=== PATIENT | male | born 1950 | race Caucasian/White ===

== ENCOUNTER → 2023-05-06 | Outpatient (CLI) | payer MEDICARE ==
[~2023-05-06] MED LIST: ISOVUE-370 76% 100ML VIAL As Ordered ONE
[2023-05-06 17:14] LABS: BLOOD UREA NITROGEN 18 MG/DL (9-23); CALCIUM LEVEL 8.5 MG/DL (8.3-10.6); CARBON DIOXIDE LEVEL 30 MMOL/L (20-31); CHLORIDE LEVEL 104 MMOL/L (98-107); CREATININE FOR GFR 0.71 MG/DL (0.70-1.30); GLOMERULAR FILTRATION RATE > 60.0 (>42); GLUCOSE, FASTING 81 MG/DL (74-106); SODIUM LEVEL 140 MMOL/L (136-145)
== END ==
LOC: M RAD 15:54
PROVIDERS: ATTEND Urology
DX: R82.89 Other abnormal findings on cytological and histological examination of urine (principal)
CPT/HCPCS: 36415; 74178; 80048; Q9967

== ENCOUNTER 2023-06-27 06:11 | Day surgery (SDC) | payer MEDICARE ==
[~2023-06-27] VITALS: Ht 167.6 cm; Wt 66.8 kg
[~2023-06-27 06:11] MED LIST changes: +ASPI81TA26 PO; +FAMO40TA3 PO; -ISOVUE-370 76% 100ML VIAL As Ordered ONE; +LISI5TAB11 PO; +OMEP1CAP73 PO; +ROSU40TA4 PO; +VITMTA PO
[2023-06-27] MEDS ORDERED: LR 1,000 ML IV SCH ×2 (06:40→10:00)
[2023-06-27] MEDS ORDERED: ONDANSETRON 4MG 2ML VIAL IV PRN ×2 (06:40→10:00)
[2023-06-27] MEDS ORDERED: ceFAZolin 2 GM/D5W 50 ML IV BAG As Ordered ONE (06:45)
[2023-06-27] MEDS ORDERED: ceFAZolin SOD 2 GM in IV 1 EA IV ONE (06:50)
[2023-06-27] MEDS ORDERED: MIDAZOLAM INJ 2MG/2ML VIAL As Ordered ONE (08:47)
[2023-06-27] MEDS ORDERED: fentaNYL 250 MCG/5 ML INJECTION As Ordered ONE (08:47)
[2023-06-27] MEDS ORDERED: propofoL 200 MG/20 ML VIAL As Ordered ONE (08:47)
[2023-06-27] MEDS ORDERED: ROCURONIUM BROMIDE 50MG/5ML VIAL As Ordered ONE (08:47)
[2023-06-27] MEDS ORDERED: ONDANSETRON 4MG 2ML VIAL As Ordered ONE (08:47)
[2023-06-27] MEDS ORDERED: LIDOCAINE 2% 100MG/5ML SDV (FOR ANES.) As Ordered ONE (08:47)
[2023-06-27] MEDS ORDERED: ACETAMINOPHEN 1000MG 100ML IV BAG As Ordered ONE (09:38)
[2023-06-27] MEDS ORDERED: SUGAMMADEX SODIUM 500 MG/5 ML VIAL (BRIDION) As Ordered ONE (09:38)
[2023-06-27] MEDS ORDERED: MEPERIDINE 25 MG/ML 1ML VIAL IV PRN (10:00)
[2023-06-27] MEDS ORDERED: fentaNYL 100 MCG/2 ML INJECTION IV PRN (10:00)
[2023-06-27 11:30] VITALS: BP 132/74; TEMP 98.1; O2SAT 96
[2023-06-27] MEDS ORDERED: ACETAMINOPHEN TAB 650MG DOSE (2X325MG) PO PRN (15:30)
== END 2023-06-27 11:25 | disposition home or self-care (01) ==
LOC: M SDC 06:11
PROVIDERS: ATTEND Urology
DX: C67.4 Malignant neoplasm of posterior wall of bladder (principal); I10 Essential (primary) hypertension; E78.00 Pure hypercholesterolemia, unspecified; K21.9 Gastro-esophageal reflux disease without esophagitis; N40.0 Benign prostatic hyperplasia without lower urinary tract symptoms; Z87.891 Personal history of nicotine dependence; J30.9 Allergic rhinitis, unspecified; Z79.899 Other long term (current) drug therapy; Z79.82 Long term (current) use of aspirin
CPT/HCPCS: 52235; 88305; J0131; J1100; J2250; J2405; J3010

== ENCOUNTER 2023-08-15 07:19 | Day surgery (SDC) | payer MEDICARE ==
[~2023-08-15] VITALS: Ht 167.6 cm; Wt 70.8 kg
[~2023-08-15 07:19] MED LIST changes: +ceFAZolin SOD 2 GM in IV 1 EA IV ONE
[2023-08-15] MEDS ORDERED: fentaNYL 100 MCG/2 ML INJECTION As Ordered ONE ×2 (08:05→09:34)
[2023-08-15] MEDS ORDERED: LIDOCAINE 2% 100MG/5ML SDV (FOR ANES.) As Ordered ONE (08:06)
[2023-08-15] MEDS ORDERED: propofoL 200 MG/20 ML VIAL As Ordered ONE (08:06)
[2023-08-15] MEDS ORDERED: MIDAZOLAM INJ 2MG/2ML VIAL As Ordered ONE (08:06)
[2023-08-15] MEDS ORDERED: ONDANSETRON 4MG 2ML VIAL As Ordered ONE (08:06)
[2023-08-15] MEDS ORDERED: ROCURONIUM BROMIDE 50MG/5ML VIAL As Ordered ONE (08:06)
[2023-08-15] MEDS ORDERED: ACETAMINOPHEN 1000MG 100ML IV BAG As Ordered ONE (09:08)
[2023-08-15] MEDS ORDERED: SUGAMMADEX SODIUM 500 MG/5 ML VIAL (BRIDION) As Ordered ONE (09:20)
[2023-08-15] MEDS ORDERED: GLYCOPYRROLATE INJ 0.2 MG/ML 2 ML VIAL As Ordered ONE (09:43)
[2023-08-15] MEDS ORDERED: oxyCODONE 5MG TAB PO PRN (09:45)
[2023-08-15] MEDS ORDERED: fentaNYL 100 MCG/2 ML INJECTION IV PRN (09:45)
[2023-08-15] MEDS ORDERED: ONDANSETRON 4MG 2ML VIAL IV PRN (09:45)
[2023-08-15] MEDS ORDERED: HYDROMORPHONE HCL 0.5 MG/ 0.5 ML SYRINGE IV PRN (09:45)
[2023-08-15] MEDS ORDERED: ALBUTEROL 6.7GM INHALER **FOR ANES. CART/OMNICELL ONLY As Ordered ONE (09:52)
[2023-08-15] MEDS ORDERED: OXYB5TAB11 PO (10:14)
[2023-08-15] MEDS ORDERED: OXYC1TAB23 PO (10:14)
[2023-08-15] MEDS ORDERED: ACETAMINOPHEN TAB 650MG DOSE (2X325MG) PO PRN (10:20)
[2023-08-15 11:05] VITALS: BP 139/80; TEMP 98.1; O2SAT 96
== END 2023-08-15 11:17 | disposition home or self-care (01) ==
LOC: M SDC 07:19
PROVIDERS: ATTEND Urology
DX: C67.9 Malignant neoplasm of bladder, unspecified (principal); G47.9 Sleep disorder, unspecified; I10 Essential (primary) hypertension; E78.00 Pure hypercholesterolemia, unspecified; K21.9 Gastro-esophageal reflux disease without esophagitis; N40.0 Benign prostatic hyperplasia without lower urinary tract symptoms; Z87.891 Personal history of nicotine dependence
CPT/HCPCS: 52234; 88305; J0131; J0690; J1100; J2250; J2405; J3010

== ENCOUNTER → 2023-09-08 | Outpatient (REF) | payer MEDICARE ==
[~2023-09-08] MED LIST changes: +OXYB5TAB11 PO; +OXYC1TAB23 PO; -ceFAZolin SOD 2 GM in IV 1 EA IV ONE
[2023-09-08 18:18] LABS: APPEARANCE, URINE CLEAR (CLEAR); BACTERIA, URINE AUTO NEGATIVE (NEGATIVE); BILIRUBIN, URINE AUTO NEGATIVE (NEGATIVE); BLOOD, URINE BLOOD 1+ (NEGATIVE); COLOR, URINE YELLOW (YELLOW); GLUCOSE, URINE (UA) AUTO NEGATIVE (NEGATIVE); KETONE, URINE AUTO NEGATIVE (NEGATIVE); LEUKOCYTE ESTERASE, URINE AUTO NEGATIVE (NEGATIVE); MUCUS, URINE SMALL (NEGATIVE); NITRITE, URINE AUTO NEGATIVE (NEGATIVE); PROTEIN, URINE AUTO NEGATIVE (NEGATIVE); RBC, URINE AUTO 1 /HPF (0-3); SPECIFIC GRAVITY URINE AUTO 1.012 (1.002-1.035); SQUAMOUS EPITHELIAL CELL UR AU 1 /HPF (0-6); UROBILINOGEN, URINE AUTO 0.2 mg/dL (0.0-2.0); WBC, URINE AUTO 2 /HPF (0-3)
== END ==
LOC: M SMT 17:03
PROVIDERS: ATTEND Urology
DX: R30.0 Dysuria (principal)

== ENCOUNTER → 2023-10-08 | Outpatient (REF) | payer MEDICARE ==
[~2023-10-08] MED LIST changes: -OXYB5TAB11 PO; +OXYB5TAB14 PO
[2023-10-08 13:44] LABS: APPEARANCE, URINE HAZY (CLEAR); BACTERIA, URINE AUTO NEGATIVE (NEGATIVE); BILIRUBIN, URINE AUTO NEGATIVE (NEGATIVE); BLOOD, URINE BLOOD NEGATIVE (NEGATIVE); COLOR, URINE YELLOW (YELLOW); GLUCOSE, URINE (UA) AUTO NEGATIVE (NEGATIVE); KETONE, URINE AUTO NEGATIVE (NEGATIVE); LEUKOCYTE ESTERASE, URINE AUTO TRACE (NEGATIVE); MUCUS, URINE SMALL (NEGATIVE); NITRITE, URINE AUTO NEGATIVE (NEGATIVE); PROTEIN, URINE AUTO NEGATIVE (NEGATIVE); RBC, URINE AUTO 1 /HPF (0-3); SPECIFIC GRAVITY URINE AUTO 1.026 (1.002-1.035); SQUAMOUS EPITHELIAL CELL UR AU 1 /HPF (0-6); UROBILINOGEN, URINE AUTO 0.2 mg/dL (0.0-2.0); WBC, URINE AUTO 4 /HPF (0-3)
== END ==
LOC: M SMT 13:03
PROVIDERS: ATTEND Urology
DX: C67.9 Malignant neoplasm of bladder, unspecified (principal)

== ENCOUNTER → 2023-10-13 | Outpatient (REF) | payer MEDICARE ==
[2023-10-13 13:56] LABS: APPEARANCE, URINE CLEAR (CLEAR); BACTERIA, URINE AUTO NEGATIVE (NEGATIVE); BILIRUBIN, URINE AUTO NEGATIVE (NEGATIVE); BLOOD, URINE BLOOD NEGATIVE (NEGATIVE); COLOR, URINE YELLOW (YELLOW); GLUCOSE, URINE (UA) AUTO NEGATIVE (NEGATIVE); KETONE, URINE AUTO NEGATIVE (NEGATIVE); LEUKOCYTE ESTERASE, URINE AUTO NEGATIVE (NEGATIVE); MUCUS, URINE SMALL (NEGATIVE); NITRITE, URINE AUTO NEGATIVE (NEGATIVE); PROTEIN, URINE AUTO NEGATIVE (NEGATIVE); RBC, URINE AUTO 1 /HPF (0-3); SPECIFIC GRAVITY URINE AUTO 1.025 (1.002-1.035); SQUAMOUS EPITHELIAL CELL UR AU 0 /HPF (0-6); UROBILINOGEN, URINE AUTO 0.2 mg/dL (0.0-2.0); WBC, URINE AUTO 1 /HPF (0-3)
== END ==
LOC: M SMT 12:51
PROVIDERS: ATTEND Urology
DX: C67.9 Malignant neoplasm of bladder, unspecified (principal)

== ENCOUNTER → 2023-10-20 | Outpatient (REF) | payer MEDICARE ==
[2023-10-20 13:21] LABS: APPEARANCE, URINE CLEAR (CLEAR); BACTERIA, URINE AUTO NEGATIVE (NEGATIVE); BILIRUBIN, URINE AUTO NEGATIVE (NEGATIVE); BLOOD, URINE BLOOD NEGATIVE (NEGATIVE); COLOR, URINE YELLOW (YELLOW); GLUCOSE, URINE (UA) AUTO NEGATIVE (NEGATIVE); KETONE, URINE AUTO NEGATIVE (NEGATIVE); LEUKOCYTE ESTERASE, URINE AUTO NEGATIVE (NEGATIVE); NITRITE, URINE AUTO NEGATIVE (NEGATIVE); PROTEIN, URINE AUTO NEGATIVE (NEGATIVE); RBC, URINE AUTO 1 /HPF (0-3); SPECIFIC GRAVITY URINE AUTO 1.015 (1.002-1.035); SQUAMOUS EPITHELIAL CELL UR AU 0 /HPF (0-6); UROBILINOGEN, URINE AUTO 0.2 mg/dL (0.0-2.0); WBC, URINE AUTO 0 /HPF (0-3)
== END ==
LOC: M SMT 13:03
PROVIDERS: ATTEND Urology
DX: C67.9 Malignant neoplasm of bladder, unspecified (principal)

== ENCOUNTER → 2023-10-27 | Outpatient (REF) | payer MEDICARE ==
[2023-10-27 17:31] LABS: APPEARANCE, URINE CLEAR (CLEAR); BACTERIA, URINE AUTO NEGATIVE (NEGATIVE); BILIRUBIN, URINE AUTO NEGATIVE (NEGATIVE); BLOOD, URINE BLOOD NEGATIVE (NEGATIVE); COLOR, URINE YELLOW (YELLOW); GLUCOSE, URINE (UA) AUTO NEGATIVE (NEGATIVE); KETONE, URINE AUTO NEGATIVE (NEGATIVE); LEUKOCYTE ESTERASE, URINE AUTO NEGATIVE (NEGATIVE); NITRITE, URINE AUTO NEGATIVE (NEGATIVE); PROTEIN, URINE AUTO NEGATIVE (NEGATIVE); RBC, URINE AUTO 1 /HPF (0-3); SQUAMOUS EPITHELIAL CELL UR AU 0 /HPF (0-6); UROBILINOGEN, URINE AUTO 0.2 mg/dL (0.0-2.0); WBC, URINE AUTO 2 /HPF (0-3)
== END ==
LOC: M SMT 16:53
PROVIDERS: ATTEND Urology
DX: C67.9 Malignant neoplasm of bladder, unspecified (principal)

== ENCOUNTER → 2023-11-03 | Outpatient (REF) | payer MEDICARE ==
[2023-11-03 13:38] LABS: APPEARANCE, URINE CLEAR (CLEAR); BACTERIA, URINE AUTO NEGATIVE (NEGATIVE); BILIRUBIN, URINE AUTO NEGATIVE (NEGATIVE); BLOOD, URINE BLOOD NEGATIVE (NEGATIVE); COLOR, URINE YELLOW (YELLOW); GLUCOSE, URINE (UA) AUTO NEGATIVE (NEGATIVE); KETONE, URINE AUTO NEGATIVE (NEGATIVE); LEUKOCYTE ESTERASE, URINE AUTO NEGATIVE (NEGATIVE); MUCUS, URINE SMALL (NEGATIVE); NITRITE, URINE AUTO NEGATIVE (NEGATIVE); PROTEIN, URINE AUTO NEGATIVE (NEGATIVE); RBC, URINE AUTO 1 /HPF (0-3); SPECIFIC GRAVITY URINE AUTO 1.017 (1.002-1.035); SQUAMOUS EPITHELIAL CELL UR AU 0 /HPF (0-6); UROBILINOGEN, URINE AUTO 0.2 mg/dL (0.0-2.0); WBC, URINE AUTO 1 /HPF (0-3)
== END ==
LOC: M SMT 13:02
PROVIDERS: ATTEND Urology
DX: C67.9 Malignant neoplasm of bladder, unspecified (principal)

== ENCOUNTER → 2023-11-10 | Outpatient (REF) | payer MEDICARE ==
[2023-11-10 16:03] LABS: APPEARANCE, URINE CLEAR (CLEAR); BACTERIA, URINE AUTO NEGATIVE (NEGATIVE); BILIRUBIN, URINE AUTO NEGATIVE (NEGATIVE); BLOOD, URINE BLOOD NEGATIVE (NEGATIVE); COLOR, URINE YELLOW (YELLOW); GLUCOSE, URINE (UA) AUTO NEGATIVE (NEGATIVE); KETONE, URINE AUTO NEGATIVE (NEGATIVE); LEUKOCYTE ESTERASE, URINE AUTO NEGATIVE (NEGATIVE); MUCUS, URINE SMALL (NEGATIVE); NITRITE, URINE AUTO NEGATIVE (NEGATIVE); PROTEIN, URINE AUTO NEGATIVE (NEGATIVE); RBC, URINE AUTO 1 /HPF (0-3); SPECIFIC GRAVITY URINE AUTO 1.023 (1.002-1.035); SQUAMOUS EPITHELIAL CELL UR AU 0 /HPF (0-6); UROBILINOGEN, URINE AUTO 0.2 mg/dL (0.0-2.0); WBC, URINE AUTO 2 /HPF (0-3)
== END ==
LOC: M SMT 15:22
PROVIDERS: ATTEND Urology
DX: C64.9 Malignant neoplasm of unspecified kidney, except renal pelvis (principal)

== ENCOUNTER → 2023-12-15 | Outpatient (REF) | payer MEDICARE ==
[2023-12-15 13:22] LABS: AMORPHOUS SEDIMENT SMALL (NEGATIVE); APPEARANCE, URINE TURBID (CLEAR); BACTERIA, URINE AUTO 1+ (NEGATIVE); BILIRUBIN, URINE AUTO 1+ (NEGATIVE); BLOOD, URINE BLOOD 1+ (NEGATIVE); CALCIUM OXALATE CRYSTALS LARGE; COLOR, URINE AMBER (YELLOW); GLUCOSE, URINE (UA) AUTO NEGATIVE (NEGATIVE); KETONE, URINE AUTO NEGATIVE (NEGATIVE); LEUKOCYTE ESTERASE, URINE AUTO NEGATIVE (NEGATIVE); MUCUS, URINE SMALL (NEGATIVE); NITRITE, URINE AUTO NEGATIVE (NEGATIVE); PROTEIN, URINE AUTO 2+ mg/dL (NEGATIVE); RBC, URINE AUTO 20 /HPF (0-3); SPECIFIC GRAVITY URINE AUTO 1.028 (1.002-1.035); SQUAMOUS EPITHELIAL CELL UR AU 1 /HPF (0-6); WBC, URINE AUTO 10 /HPF (0-3)
== END ==
LOC: M SMT 12:35
PROVIDERS: ATTEND Urology
DX: R31.9 Hematuria, unspecified (principal)

== ENCOUNTER → 2024-03-22 | Outpatient (REF) | payer MEDICARE ==
[~2024-03-22] MED LIST changes: -ROSU40TA4 PO; +ROSU40TA63 PO
== END ==
LOC: M SMT 14:54
PROVIDERS: ATTEND Urology
DX: N39.0 Urinary tract infection, site not specified (principal); C67.9 Malignant neoplasm of bladder, unspecified

== ENCOUNTER → 2024-04-02 | Outpatient (CLI) | payer MEDICARE ==
[~2024-04-02] MED LIST changes: +ISOVUE-370 76% 100ML VIAL As Ordered ONE
== END ==
LOC: M RAD 13:34
PROVIDERS: ATTEND Urology
DX: C67.9 Malignant neoplasm of bladder, unspecified (principal); N13.30 Unspecified hydronephrosis
CPT/HCPCS: 74178; Q9967

== ENCOUNTER 2024-04-14 10:34 | Day surgery (SDC) | payer MEDICARE ==
[~2024-04-14] VITALS: Ht 167.6 cm; Wt 63.8 kg
[~2024-04-14 10:34] MED LIST changes: +ACETAMINOPHEN 1000MG 100ML IV BAG As Ordered ONE; -ISOVUE-370 76% 100ML VIAL As Ordered ONE; +LIDOCAINE 2% 100MG/5ML SDV (FOR ANES.) As Ordered ONE; +ONDANSETRON 4MG 2ML VIAL As Ordered ONE; +ROCURONIUM BROMIDE 50MG/5ML VIAL As Ordered ONE; -ROSU40TA63 PO; +ROSU40TA81 PO; +TAMS1CAP17 PO; +TRIA1CR80 TOP; +fentaNYL 100 MCG/2 ML INJECTION As Ordered ONE; +propofoL 200 MG/20 ML VIAL As Ordered ONE
[2024-04-14] MEDS ORDERED: LIDOCAINE 2% 5ML JELLY UROJET ONE (10:35)
[2024-04-14] MEDS ORDERED: LIDOCAINE 1% SDV 5ML VIAL SC PRN (10:55)
[2024-04-14] MEDS ORDERED: LR 1,000 ML IV SCH ×2 (10:55→13:55)
[2024-04-14] MEDS ORDERED: ISOVUE-300 61% 100ML VIAL As Ordered ONE (12:23)
[2024-04-14] MEDS: ceFAZolin SOD 2 GM in IV 1 EA IV ONE (12:27)
[2024-04-14] MEDS ORDERED: fentaNYL 100 MCG/2 ML INJECTION IV PRN (13:55)
[2024-04-14] MEDS ORDERED: ONDANSETRON 4MG 2ML VIAL IV PRN (13:55)
[2024-04-14] MEDS: oxyCODONE 5MG TAB PO PRN (14:22)
[2024-04-14] MEDS: HYDROMORPHONE HCL 0.5 MG/ 0.5 ML SYRINGE IV PRN (14:23)
[2024-04-14] MEDS ORDERED: OXYB10TA23 PO (14:34)
[2024-04-14] MEDS ORDERED: CIPR-249 PO (14:34)
[2024-04-14 15:25] VITALS: BP 145/67; TEMP 97.9; O2SAT 95
[2024-04-14] MEDS ORDERED: PERCOCET 5MG/325MG TAB PO PRN (15:25)
[2024-04-14] MEDS ORDERED: oxyBUTYnin 5 MG TAB PO PRN (15:25)
[2024-04-16] MEDS ORDERED: LIDOCAINE 2% 5ML JELLY UROJET TOP PRN (11:25)
== END 2024-04-14 16:20 | disposition home or self-care (01) ==
LOC: M SDC 10:34
PROVIDERS: ATTEND Urology
DX: C67.3 Malignant neoplasm of anterior wall of bladder (principal); N13.39 Other hydronephrosis; I10 Essential (primary) hypertension; E78.00 Pure hypercholesterolemia, unspecified; Z86.718 Personal history of other venous thrombosis and embolism; G47.30 Sleep apnea, unspecified; K21.9 Gastro-esophageal reflux disease without esophagitis; L30.9 Dermatitis, unspecified; N40.0 Benign prostatic hyperplasia without lower urinary tract symptoms; Z79.899 Other long term (current) drug therapy; Z79.82 Long term (current) use of aspirin; Z87.891 Personal history of nicotine dependence
CPT/HCPCS: 52240; 52332; 76000; 88307; C2617; J0131; J0690; J1100; J1170; J2405; J3010; Q9967

== ENCOUNTER 2024-04-29 17:32 | Inpatient (IN) | payer MEDICARE ==
[~2024-04-29] VITALS: Ht 167.6 cm; Wt 54.5 kg
[~2024-04-29 17:32] MED LIST changes: -ACETAMINOPHEN 1000MG 100ML IV BAG As Ordered ONE; +CIPR-249 PO; -LIDOCAINE 2% 100MG/5ML SDV (FOR ANES.) As Ordered ONE; -ONDANSETRON 4MG 2ML VIAL As Ordered ONE; +OXYB10TA23 PO; -ROCURONIUM BROMIDE 50MG/5ML VIAL As Ordered ONE; -fentaNYL 100 MCG/2 ML INJECTION As Ordered ONE; -propofoL 200 MG/20 ML VIAL As Ordered ONE
[2024-04-29 18:36] LABS: BASO % 0.5 % (0.0-1.0); EOS # 0.3 10^3/uL (0.0-0.5); EOS % 5.1 % (0.0-3.0); HEMATOCRIT 33.6 % (42.0-52.0); HEMOGLOBIN 11.1 g/dl (13.5-17.5); LYMPH % 16.6 % (24.0-44.0); MEAN CORPUSCULAR HEMOGLOBIN 29.8 pg (27.0-33.0); MEAN CORPUSCULAR VOLUME 90.1 fl (80.0-96.0); MONO # 0.6 10^3/uL (0.0-0.8); NEUTROPHILS # 3.9 10^3/uL (1.5-8.5); NEUTROPHILS % 67.6 % (36.0-66.0); PLATELET COUNT, AUTOMATED 265 10^3/uL (150-450); RED BLOOD COUNT 3.73 10^6/uL (4.30-6.10); WHITE BLOOD COUNT 5.7 10^3/uL (4.0-10.0)
[2024-04-29 19:12] LABS: ALBUMIN 3.7 G/DL (3.2-5.2); ALKALINE PHOSPHATASE 169 U/L (46-116); ALT/SGPT 15 U/L (7.0-40); AST/SGOT 25 U/L (<34); BILIRUBIN,DIRECT < 0.1 MG/DL (<0.4); BILIRUBIN,TOTAL 0.3 MG/DL (0.3-1.2); BLOOD UREA NITROGEN 65 MG/DL (9-23); CARBON DIOXIDE LEVEL 21 MMOL/L (20-31); CHLORIDE LEVEL 109 MMOL/L (98-107); CREATININE FOR GFR 6.22 MG/DL (0.70-1.30); GLOMERULAR FILTRATION RATE 9.5 (>42); GLUCOSE, FASTING 91 MG/DL (74-106); POTASSIUM SERUM 6.1 MMOL/L (3.5-5.1); SODIUM LEVEL 138 MMOL/L (136-145); TOTAL PROTEIN 6.5 G/DL (5.7-8.2)
[2024-04-29] MEDS: DEXTROSE 50% 50ML SYRINGE IV STA (19:34)
[2024-04-29] MEDS: HumuLIN R (REGULAR) INSULIN (NovoLIN R) **100U/ML** PER UNIT IV ONE (19:37)
[2024-04-29] MEDS: CALCIUM GLUCONATE 1,000 MG in D5W MINI-BAG PLUS 100 ML IV ONE (19:39)
[2024-04-29] MEDS: NS 1,000 ML IV SCH (23:12)
[2024-04-30] MEDS: PATIROMER SORBITEX CALCIUM 8.4 GM POWDER PACKET (VELTASSA) PO ONE ×3 (00:55→08:00)
[2024-04-30] MEDS ORDERED: LIDOCAINE 2% 5ML JELLY UROJET As Ordered ONE (01:07)
[2024-04-30] MEDS: LIDOCAINE 2% 5ML JELLY UROJET TOP ONE (01:30)
[2024-04-30] MEDS ORDERED: OXYC1TAB23 PO (01:42)
[2024-04-30 01:45] VITALS: BP 139/73; TEMP 97; O2SAT 96
[2024-04-30] MEDS ORDERED: HOME MED LIST COMPLETE! XX SCH (01:45)
[2024-04-30] MEDS ORDERED: PILL CUTTER 1 EACH XX PRN (01:50)
[2024-04-30] MEDS: HYDROmorphone 2 MG TAB PO PRN ×2 (02:00→10:22)
[2024-04-30 03:00] LABS: CREATININE FOR GFR 6.31 MG/DL (0.70-1.30); GLOMERULAR FILTRATION RATE 9.3 (>42); POTASSIUM SERUM 5.4 MMOL/L (3.5-5.1)
[2024-04-30] MEDS: ACETAMINOPHEN TAB 650MG DOSE (2X325MG) PO ONE (03:49)
[2024-04-30] MEDS: HYDROmorphone 2 MG TAB PO ONE (03:49)
[2024-04-30 04:00] VITALS: BP 141/72; TEMP 97; O2SAT 98
[2024-04-30 05:26] LABS: BASO % 0.6 % (0.0-1.0); EOS # 0.2 10^3/uL (0.0-0.5); EOS % 4.2 % (0.0-3.0); HEMATOCRIT 33.4 % (42.0-52.0); HEMOGLOBIN 11.1 g/dl (13.5-17.5); LYMPH # 0.7 10^3/uL (1.5-5.0); LYMPH % 13.2 % (24.0-44.0); MEAN CORPUSCULAR HEMOGLOBIN 30.2 pg (27.0-33.0); MEAN CORPUSCULAR HGB CONC 33.2 g/dl (32.0-36.5); MEAN CORPUSCULAR VOLUME 90.8 fl (80.0-96.0); MONO # 0.4 10^3/uL (0.0-0.8); MONO % 7.9 % (2.0-8.0); NEUTROPHILS # 3.7 10^3/uL (1.5-8.5); NEUTROPHILS % 73.7 % (36.0-66.0); PLATELET COUNT, AUTOMATED 251 10^3/uL (150-450); RED BLOOD COUNT 3.68 10^6/uL (4.30-6.10); WHITE BLOOD COUNT 5.1 10^3/uL (4.0-10.0)
[2024-04-30 06:04] LABS: CALCIUM LEVEL 9.1 MG/DL (8.3-10.6); CREATININE FOR GFR 6.13 MG/DL (0.70-1.30); GLOMERULAR FILTRATION RATE 9.6 (>42); MAGNESIUM LEVEL 1.9 MG/DL (1.8-2.4); POTASSIUM SERUM 6.2 MMOL/L (3.5-5.1)
[2024-04-30] MEDS ORDERED: GLUCOSE 4 GM CHEW PO PRN (07:00)
[2024-04-30] MEDS ORDERED: GLUCAGON INJ 1MG VIAL SC PRN (07:00)
[2024-04-30] MEDS ORDERED: DEXTROSE 50% 50ML SYRINGE IV PRN (07:00)
[2024-04-30] MEDS: DEXTROSE 50% 50ML SYRINGE IV STA ×2 (07:07→16:52)
[2024-04-30] MEDS: CALCIUM GLUCONATE 1,000 MG in D5W MINI-BAG PLUS 100 ML IV SCH (07:08)
[2024-04-30] MEDS: HumuLIN R (REGULAR) INSULIN (NovoLIN R) **100U/ML** PER UNIT IV STA ×2 (07:08→16:52)
[2024-04-30] MEDS: TAMSULOSIN 0.4 MG CAP PO SCH (08:00)
[2024-04-30] MEDS: OMEPRAZOLE 20MG CAP PO SCH (08:00)
[2024-04-30 08:03] VITALS: BP 128/74; TEMP 97; O2SAT 97
[2024-04-30 09:01] LABS: CALCIUM LEVEL 9.8 MG/DL (8.3-10.6); CREATININE FOR GFR 5.96 MG/DL (0.70-1.30); POTASSIUM SERUM 5.8 MMOL/L (3.5-5.1)
[2024-04-30 09:27] LABS: INR 1.04; PARTIAL THROMBOPLASTIN TIME 29.1 SECONDS (24.8-34.2); PROTHROMBIN TIME 13.3 SECONDS (12.5-14.5)
[2024-04-30 11:25] LABS: CALCIUM LEVEL 10.1 MG/DL (8.3-10.6); CREATININE FOR GFR 5.83 MG/DL (0.70-1.30); GLOMERULAR FILTRATION RATE 10.2 (>42); POTASSIUM SERUM 5.5 MMOL/L (3.5-5.1)
[2024-04-30 11:38] VITALS: BP 115/59; TEMP 98.6; O2SAT 96
[2024-04-30] MEDS: cefTRIAXone SOD 1 GM in D5W MINI-BAG PLUS 50 ML IV SCH (11:46)
[2024-04-30] MEDS ORDERED: ISOVUE-300 61% 100ML VIAL As Ordered ONE (14:48)
[2024-04-30] MEDS ORDERED: MIDAZOLAM INJ 2MG/2ML VIAL As Ordered ONE (14:48)
[2024-04-30] MEDS ORDERED: fentaNYL 100 MCG/2 ML INJECTION As Ordered ONE (14:48)
[2024-04-30] MEDS ORDERED: LIDOCAINE 1% MDV 20ML VIAL As Ordered ONE (14:49)
[2024-04-30 14:50] LABS: CALCIUM LEVEL 10.1 MG/DL (8.3-10.6); CREATININE FOR GFR 5.76 MG/DL (0.70-1.30); GLOMERULAR FILTRATION RATE 10.4 (>42); POTASSIUM SERUM 6.3 MMOL/L (3.5-5.1)
[2024-04-30] MEDS: NS 1,000 ML IV SCH (16:30)
[2024-04-30 16:49] VITALS: BP 145/71; TEMP 97.6; O2SAT 98
[2024-04-30] MEDS: CALCIUM GLUCONATE 1,000 MG in D5W MINI-BAG PLUS 100 ML IV ONE (16:53)
[2024-04-30] MEDS: SOD POLYSTYRENE SULFONATE SUSP 15GM 60ML UD PO STA (16:54)
[2024-04-30] MEDS: ALBUTEROL SULFATE 2.5MG/0.5ML INH NEB SOLN NEB STA (16:57)
[2024-04-30 19:05] LABS: CREATININE FOR GFR 4.63 MG/DL (0.70-1.30); GLOMERULAR FILTRATION RATE 13.3 (>42); POTASSIUM SERUM 4.4 MMOL/L (3.5-5.1)
[2024-04-30 20:09] VITALS: BP 116/69; TEMP 97.8; O2SAT 96
[2024-04-30] MEDS: FAMOTIDINE 20 MG TAB PO SCH (20:19)
[2024-04-30] MEDS: DOCUSATE SODIUM 100MG CAPSULE PO PRN (22:46)
[2024-04-30] MEDS: MIRALAX *UNIT DOSE* 17GM PACKET PO PRN (22:46)
[2024-05-01 00:15] VITALS: BP 120/79; TEMP 97.4; O2SAT 97
[2024-05-01 00:44] LABS: CREATININE FOR GFR 2.76 MG/DL (0.70-1.30); GLOMERULAR FILTRATION RATE 24.2 (>42); POTASSIUM SERUM 5.1 MMOL/L (3.5-5.1)
[2024-05-01 03:40] VITALS: BP 137/80; TEMP 96.8; O2SAT 98
[2024-05-01 05:44] LABS: BASO % 0.4 % (0.0-1.0); EOS # 0.2 10^3/uL (0.0-0.5); EOS % 4.2 % (0.0-3.0); HEMATOCRIT 33.5 % (42.0-52.0); HEMOGLOBIN 11.2 g/dl (13.5-17.5); LYMPH # 0.7 10^3/uL (1.5-5.0); LYMPH % 12.7 % (24.0-44.0); MEAN CORPUSCULAR HEMOGLOBIN 29.9 pg (27.0-33.0); MEAN CORPUSCULAR HGB CONC 33.4 g/dl (32.0-36.5); MEAN CORPUSCULAR VOLUME 89.3 fl (80.0-96.0); MONO # 0.6 10^3/uL (0.0-0.8); MONO % 11.4 % (2.0-8.0); NEUTROPHILS # 3.9 10^3/uL (1.5-8.5); NEUTROPHILS % 70.8 % (36.0-66.0); PLATELET COUNT, AUTOMATED 252 10^3/uL (150-450); RED BLOOD COUNT 3.75 10^6/uL (4.30-6.10); WHITE BLOOD COUNT 5.5 10^3/uL (4.0-10.0)
[2024-05-01 06:10] LABS: CALCIUM LEVEL 9.2 MG/DL (8.3-10.6); CREATININE FOR GFR 1.9 MG/DL (0.70-1.30); GLOMERULAR FILTRATION RATE 37.3 (>42); MAGNESIUM LEVEL 1.4 MG/DL (1.8-2.4); POTASSIUM SERUM 5.4 MMOL/L (3.5-5.1)
[2024-05-01] MEDS: MAG SULF 1GM/100ML (MAG RUN) 1 GM in IV 1 EA IV SCH (07:20)
[2024-05-01 07:41] VITALS: BP 136/75; TEMP 97.3; O2SAT 96
[2024-05-01] MEDS: SOD POLYSTYRENE SULFONATE SUSP 15GM 60ML UD PO ONE (08:10)
[2024-05-01 11:47] VITALS: BP 139/74; TEMP 97.7; O2SAT 95
[2024-05-01 12:26] LABS: CALCIUM LEVEL 10.1 MG/DL (8.3-10.6); CREATININE FOR GFR 1.42 MG/DL (0.70-1.30); GLOMERULAR FILTRATION RATE 52.2 (>42); POTASSIUM SERUM 4.8 MMOL/L (3.5-5.1)
[2024-05-01 12:55] LABS: MAGNESIUM LEVEL 2.4 MG/DL (1.8-2.4)
[2024-05-01] MEDS ORDERED: MAGN400C2 PO (13:11)
[2024-05-01] MEDS ORDERED: CEFD1CAP9 PO ×2 (13:11→13:44)
== END 2024-05-01 16:05 | disposition home health service (06) | DRG 690 ==
LOC: M ED 17:32 → M ED INP 04-30 00:18 → M PCU 04-30 01:47
PROVIDERS: ADMIT Student in an Organized Health Care Education/Training Program; ATTEND Internal Medicine
PROC: 0T9330Z Drainage of Right Kidney Pelvis with Drainage Device, Percutaneous Approach (ICD-10-PCS; 2024-04-30)
PROC: 0T9430Z Drainage of Left Kidney Pelvis with Drainage Device, Percutaneous Approach (ICD-10-PCS; principal; 2024-04-30 15:30)
DX: N13.6 Pyonephrosis (principal); E78.5 Hyperlipidemia, unspecified; I73.9 Peripheral vascular disease, unspecified; L40.9 Psoriasis, unspecified; I10 Essential (primary) hypertension; K22.70 Barrett's esophagus without dysplasia; C67.9 Malignant neoplasm of bladder, unspecified; N17.9 Acute kidney failure, unspecified; E87.5 Hyperkalemia; K21.9 Gastro-esophageal reflux disease without esophagitis; D64.9 Anemia, unspecified; K59.00 Constipation, unspecified; E83.42 Hypomagnesemia; Z79.899 Other long term (current) drug therapy; Z89.512 Acquired absence of left leg below knee; Z96.0 Presence of urogenital implants; Z87.891 Personal history of nicotine dependence

== ENCOUNTER → 2024-05-27 | Outpatient (CLI) | payer MEDICARE ==
[~2024-05-27] MED LIST changes: +CEFD1CAP9 PO; +LIDOCAINE 1% MDV 20ML VIAL As Ordered ONE; +MAGN400C2 PO; +MIDAZOLAM INJ 2MG/2ML VIAL As Ordered ONE; +ONDA-284 PO; +PROC10TA5 PO; +ceFAZolin 2 GM/D5W 50 ML IV BAG As Ordered ONE; +fentaNYL 100 MCG/2 ML INJECTION As Ordered ONE
[2024-05-27 12:30] VITALS: TEMP 99.5
[2024-05-27] MEDS: ceFAZolin SOD 2 GM in IV 1 EA IV ONE (12:51)
[2024-05-27] MEDS: NS 1,000 ML IV SCH (12:52)
[2024-05-27 14:25] VITALS: BP 113/67; O2SAT 97
== END ==
LOC: M IRPRO 12:02
PROVIDERS: ATTEND Internal Medicine Medical Oncology
DX: C67.9 Malignant neoplasm of bladder, unspecified (principal)
CPT/HCPCS: 36561; 99152; C1894; J0690; J1642; J2250; J3010

== ENCOUNTER → 2024-05-31 | Outpatient (REF) | payer MEDICARE ==
[~2024-05-31] MED LIST changes: -LIDOCAINE 1% MDV 20ML VIAL As Ordered ONE; -MIDAZOLAM INJ 2MG/2ML VIAL As Ordered ONE; -ceFAZolin 2 GM/D5W 50 ML IV BAG As Ordered ONE; -fentaNYL 100 MCG/2 ML INJECTION As Ordered ONE
[2024-05-31 18:51] LABS: APPEARANCE, URINE TURBID (CLEAR); BACTERIA, URINE AUTO NEGATIVE (NEGATIVE); BILIRUBIN, URINE AUTO NEGATIVE (NEGATIVE); BLOOD, URINE BLOOD 1+ (NEGATIVE); COLOR, URINE YELLOW (YELLOW); GLUCOSE, URINE (UA) AUTO NEGATIVE (NEGATIVE); KETONE, URINE AUTO NEGATIVE (NEGATIVE); LEUKOCYTE ESTERASE, URINE AUTO 1+ (NEGATIVE); NITRITE, URINE AUTO NEGATIVE (NEGATIVE); PROTEIN, URINE AUTO 2+ mg/dL (NEGATIVE); RBC, URINE AUTO TNTC /HPF (0-3); SPECIFIC GRAVITY URINE AUTO 1.018 (1.002-1.035); SQUAMOUS EPITHELIAL CELL UR AU 0 /HPF (0-6); UROBILINOGEN, URINE AUTO 0.2 mg/dL (0.0-2.0); WBC, URINE AUTO TNTC /HPF (0-3)
== END ==
LOC: M SMT 17:21
PROVIDERS: ATTEND Urology
DX: N39.0 Urinary tract infection, site not specified (principal)

== ENCOUNTER → 2024-08-03 | Outpatient (CLI) | payer MEDICARE ==
[~2024-08-03] VITALS: Ht 167.6 cm; Wt 59.0 kg
[~2024-08-03] MED LIST changes: +CIPROFLOXACIN 400 MG in IV 1 EA IV ONE; +CIPROFLOXACIN/D5W 400 MG/200 ML BAG As Ordered ONE; +ISOVUE-300 61% 100ML VIAL As Ordered ONE; +LIDOCAINE 1% MDV 20ML VIAL As Ordered ONE; +MIDAZOLAM INJ 2MG/2ML VIAL As Ordered ONE; +NS 1,000 ML IV SCH; +fentaNYL 100 MCG/2 ML INJECTION As Ordered ONE
[2024-08-03 12:15] VITALS: TEMP 97.4
[2024-08-03 14:50] VITALS: BP 152/74; O2SAT 99
== END ==
LOC: M IRPRO 11:59
PROVIDERS: ATTEND Radiology Diagnostic Radiology
DX: N13.9 Obstructive and reflux uropathy, unspecified (principal)
CPT/HCPCS: 50435; 99152; C1729; J0744; J2250; J3010; Q9967

== ENCOUNTER → 2024-08-24 | Outpatient (CLI) | payer MEDICARE ==
[~2024-08-24] MED LIST changes: -CIPROFLOXACIN 400 MG in IV 1 EA IV ONE; -CIPROFLOXACIN/D5W 400 MG/200 ML BAG As Ordered ONE; -ISOVUE-300 61% 100ML VIAL As Ordered ONE; +ISOVUE-370 76% 100ML VIAL ONE; +LEVO1TAB39 PO; -LIDOCAINE 1% MDV 20ML VIAL As Ordered ONE; -MIDAZOLAM INJ 2MG/2ML VIAL As Ordered ONE; -NS 1,000 ML IV SCH; -fentaNYL 100 MCG/2 ML INJECTION As Ordered ONE
== END ==
LOC: M PLAIMG 10:33
PROVIDERS: ATTEND Internal Medicine Medical Oncology
DX: C67.9 Malignant neoplasm of bladder, unspecified (principal); N32.89 Other specified disorders of bladder; K57.20 Diverticulitis of large intestine with perforation and abscess without bleeding; Z93.6 Other artificial openings of urinary tract status
CPT/HCPCS: 74178; Q9967

== ENCOUNTER → 2024-09-17 | Outpatient (CLI) | payer MEDICARE ==
[~2024-09-17] MED LIST changes: +ISOVUE-370 76% 100ML VIAL As Ordered ONE; -ISOVUE-370 76% 100ML VIAL ONE
== END ==
LOC: M RAD 14:19
PROVIDERS: ATTEND Nurse Practitioner Family
DX: C67.9 Malignant neoplasm of bladder, unspecified (principal)
CPT/HCPCS: 71260; Q9967

== ENCOUNTER → 2024-11-03 | Outpatient (CLI) | payer MEDICARE | LOC: M RAD 14:00 | PROVIDERS: ATTEND Internal Medicine Medical Oncology | DX: C67.9 Malignant neoplasm of bladder, unspecified (principal) | CPT/HCPCS: 71260; 74177; Q9967 ==

== ENCOUNTER → 2024-12-30 | Outpatient (CLI) | payer MEDICARE ==
[~2024-12-30] MED LIST changes: +CETI10CA13 PO; -ISOVUE-370 76% 100ML VIAL As Ordered ONE
[2024-12-30 06:40] VITALS: TEMP 98.1
[2024-12-30] MEDS: CEPHALEXIN 500 MG CAP PO ONE (07:08)
[2024-12-30] MEDS: ISOVUE-300 61% 100ML VIAL IV ONE (07:41)
[2024-12-30] MEDS: LIDOCAINE 1% MDV 20ML VIAL SC ONE (07:43)
[2024-12-30 08:00] VITALS: BP 109/68; O2SAT 96
== END ==
LOC: M IRPRO 06:27
PROVIDERS: ATTEND Radiology Diagnostic Radiology
DX: N13.9 Obstructive and reflux uropathy, unspecified (principal)
CPT/HCPCS: 50435; C1729; C1769; Q9967

== ENCOUNTER → 2025-03-31 | Outpatient (CLI) | payer MEDICARE ==
[~2025-03-31] MED LIST changes: +CELE100C PO; +PEMB100V2 IV
[2025-03-31 07:25] VITALS: TEMP 97.7
[2025-03-31] MEDS: CEPHALEXIN 500 MG CAP PO ONE (07:33)
[2025-03-31] MEDS: SODIUM CHLORIDE 0.9% 1000 ML XX SCH (07:33)
[2025-03-31 08:35] VITALS: BP 117/70; O2SAT 100
[2025-03-31] MEDS: LIDOCAINE 1% MDV 20 ML VIAL SC SCH (08:46)
[2025-03-31] MEDS: ISOVUE-300 61% 100 ML VIAL IV SCH (08:46)
== END ==
LOC: M IRPRO 07:11
PROVIDERS: ATTEND Radiology Diagnostic Radiology
DX: N13.9 Obstructive and reflux uropathy, unspecified (principal)
CPT/HCPCS: 50435; C1729; Q9967

== ENCOUNTER → 2025-06-01 | Outpatient (CLI) | payer MEDICARE ==
[~2025-06-01] MED LIST changes: +ISOVUE-370 76% 100 ML VIAL As Ordered ONE
== END ==
LOC: M RAD 17:18
DX: C67.9 Malignant neoplasm of bladder, unspecified (principal); Z93.6 Other artificial openings of urinary tract status; R91.8 Other nonspecific abnormal finding of lung field
CPT/HCPCS: 71250; 74176; Q9967